=== PATIENT | male | born 1995 | race Caucasian/White ===

== ENCOUNTER → 2022-08-24 07:48 | Outpatient (CLI) | payer OTHER, SELFPAY | DX: R20.2 Paresthesia of skin (principal) | CPT/HCPCS: 95886; 95909 ==

== ENCOUNTER → 2022-11-13 10:08 | Outpatient (CLI) | payer OTHER, SELFPAY ==
--- NOTE | 2022-11-13 | DI.RAD.S_ITS ---
PROCEDURE: FL SHOULDER INJECTION MR/CT RT INDICATIONS: RIGHT SHOULDER PAIN COMPARISON: [facility], MR, MR SHOULDER RT W CON, 11/13/2022, 10:47. TECHNIQUE: The indications, alternatives, benefits, risks, and complications of the procedure were explained to the patient. Written informed consent was obtained and placed in the chart. The shoulder was examined fluoroscopically and a site for needle placement chosen for entry into the glenohumeral joint from an anterior approach. The skin was prepped and draped in a sterile fashion, and 1% lidocaine infiltrated from skin down to joint capsule. A spinal needle was inserted into the glenohumeral joint, and a small amount of iodinated contrast media injected to confirm intra-articular placement of the needle tip. This was followed by approximately 12 mL dilute solution of a gadolinium containing MR contrast agent. The needle was removed and a dressing was applied. The patient was given postprocedural instructions and sent to the MR suite for MR imaging. FINDINGS: A single fluoroscopic spot image demonstrates intra-articular location of injected iodinated contrast. IMPRESSION: Successful fluoroscopically guided administration of dilute Gadolinium solution into the shoulder joint for MR arthrogram. Dictated by: Khang Torres M.D. on 11/13/2022 at 14:36 Approved by: Khang Torres M.D. on 11/13/2022 at 14:37
--- NOTE | 2022-11-13 | DI.MRI.S_ITS ---
PROCEDURE: MR SHOULDER RT W CON INDICATIONS: RIGHT SHOULDER PAIN TECHNIQUE: After the administration of 12 mL of dilute intra-articular Gadolinium contrast, oblique coronal T1 and T2 spin echo with fat saturation, oblique sagittal T1 spin echo with and without fat saturation, oblique sagittal T2 fast spin echo with fat saturation, axial T1 spin echo with fat saturation through the shoulder. COMPARISON: [facility], , MD SHOULDER INJECTION MR/CT RT, 11/13/2022, 11:36. FINDINGS: Image quality: Excellent. Rotator cuff: Mild supraspinatus, infraspinatus, and subscapularis tendinosis without full-thickness tendon tear. No rotator cuff muscle atrophy on sagittal images. Bones and bursae: No bone marrow contusions or fractures. Moderate acromioclavicular joint degeneration. The acromion demonstrates conventional anatomy, without an os acromiale. Capsule and soft tissues: There is SLAP tear of the superior labrum extending to the biceps anchor. The glenohumeral ligaments appear intact. The long head of the biceps tendon demonstrates normal location and morphology. The rotator interval appears normal, without fibrosis. The coracohumeral ligament is of normal thickness. No intra-articular bodies. IMPRESSION: 1. SLAP tear. 2. Mild rotator cuff tendinosis. No gsyk-gotkxthsp-thgdqpirc tendon tear. 3. Moderate acromioclavicular joint degeneration. Dictated by: Michael Whelan M.D. on 11/13/2022 at 14:34 Approved by: Michael Whelan M.D. on 11/13/2022 at 14:38
== END ==
PROVIDERS: PCP Student in an Organized Health Care Education/Training Program; Referring Provider Orthopaedic Surgery; Visit Provider Orthopaedic Surgery
DX: S43.431A Superior glenoid labrum lesion of right shoulder, initial encounter (principal); M19.011 Primary osteoarthritis, right shoulder; M25.511 Pain in right shoulder
CPT/HCPCS: 23350; 73222; 77002

== ENCOUNTER → 2022-11-15 08:10 | Outpatient (CLI) | payer OTHER, SELFPAY ==
--- NOTE | 2022-11-15 | DI.RAD.S_ITS ---
PROCEDURE: FL JOINT INJECTION MEDIUM RT INDICATIONS: RIGHT SHOULDER PAIN, CORTICOSTEROID INJECTION COMPARISON: [facility], MR, MR SHOULDER RT W CON, 11/13/2022, 10:47. [facility], RF, FL SHOULDER INJECTION MR/CT RT, 11/13/2022, 11:36. TECHNIQUE: The indications, alternatives, benefits, risks, and complications of the procedure were explained to the patient. Written informed consent was obtained and placed in the chart. The patient was placed in an appropriate position on the fluoroscopy table, and a site was chosen for percutaneous access under fluoroscopic guidance. The site was prepped and draped in a sterile fashion. Local anesthetic was administered using a 1% lidocaine solution. A hypodermic or spinal needle was then used to access the symptomatic joint. Intra-articular location of the needle tip was confirmed by injecting a small amount of contrast, followed by steroid administration. The needle was then withdrawn, and a bandage applied to the puncture site. FINDINGS: Joint injected: Right shoulder Medications injected: 4 mL of 40 mg/mL Kenalog and 0.5% Ropivacaine mixture. Patient's pain before injection: 7 out of 10. Patient's pain after injection: 7 out of 10. Complications: None. IMPRESSION: Successful fluoroscopically guided administration of steroid and anaesthetic solution into the right glenohumeral joint. Dictated by: Michael Whelan M.D. on 11/15/2022 at 13:43 Approved by: Michael Whelan M.D. on 11/15/2022 at 13:47
== END ==
PROVIDERS: PCP Student in an Organized Health Care Education/Training Program; Referring Provider Orthopaedic Surgery; Visit Provider Orthopaedic Surgery
DX: M25.511 Pain in right shoulder (principal)
CPT/HCPCS: 20605; 77002

== ENCOUNTER 2023-11-17 16:30 | Emergency (ER) | payer OTHER, SELFPAY ==
[2023-11-17 16:38] VITALS: BP 146/76; PULSE 88; RESP 17; TEMP 37; O2SAT 98; BMI 31.8
--- NOTE | 2023-11-17 16:42 | DI.RAD.S_ITS ---
PROCEDURE: XR ANKLE RT MIN 3V INDICATIONS: snowboarding injury TECHNIQUE: 3 views of the ankle were acquired. COMPARISON: None. FINDINGS: Bones: No fractures or dislocations. Ankle mortise is normally aligned. No suspicious bony lesions. Soft tissues: No tibiotalar joint effusion. Achilles tendon appears normal. IMPRESSION: No acute bony abnormality or significant effusion. Approved by: Samson Jaimes M.D. on 11/17/2023 at 17:13
[2023-11-17] MEDS: KETOROLAC 30 MG/ML VIAL IM (16:58)
--- NOTE | 2023-11-17 18:12 | ED.LOWEXIN ---
HPI - Extremity Injury (Lower) <Leora Nuno PA-C - Last Filed: 11/17/23 19:01> General Chief Complaint: Extremity Injury, Lower Stated Complaint: ankle injury Time Seen by Provider: 11/17/23 16:54 Source: patient Mode of arrival: Wheelchair History of Present Illness HPI Narrative: Patient is a 28-year-old male who was snowboarding today on sticky snow and collided with a tree with the bottom of his board but with all his weight behind his right foot. He immediately felt intense right ankle pain. He was put in a make-shift splint by skin carver and then came to the emergency room. He did not take any medicine. No history of injury or surgery to that ankle. He currently takes amitriptyline for headaches and gabapentin for nerve pain. He denies any recent fever, chills, cough, sore throat or other symptoms. Related Data Home Medications Medication Instructions Recorded Confirmed amitriptyline 25 mg tablet 25 mg PO DAILY 11/17/23 11/17/23 gabapentin 300 mg tablet 300 mg PO DAILY 11/17/23 11/17/23 sumatriptan succinate 3 mg/0.5 mL 3 mg SUBCUT Q1H 11/17/23 11/17/23 subcutaneous pen injector Allergies Allergy/AdvReac Type Severity Reaction Status Date / Time No Known Drug Allergies Allergy Verified 11/17/23 16:40 Review of Systems <Leora Nuno PA-C - Last Filed: 11/17/23 19:01> Review of Systems ROS Unobtainable: All systems reviewed & are unremarkable except as noted in HPI and below Patient History <Leora Nuno PA-C - Last Filed: 11/17/23 19:01> Social History Smoking Status: Never smoker Smoking Status: Never smoker alcohol intake frequency: other Substance Use Type: does not use Exam <Leora Nuno PA-C - Last Filed: 11/17/23 19:01> Narrative Exam Narrative: GENERAL: 28 year old patient appears stated age. Well-developed patient, in mild distress. NEURO: AOx3. HEAD: Atraumatic. Normocephalic. EYES: Pupils equal round and reactive. Extraocular motions intact. No scleral icterus. No injection or drainage. ENT: Nose without bleeding or purulent drainage. Airway patent. RESPIRATORY: No distress. EXTREMITIES: Mild edema of the right ankle, tenderness to palpation of the posterior aspect of the lateral malleolus. 2+ DP pulse, capillary refill 2 seconds. SKIN: No rash or erythema of visible areas Initial Vital Signs Initial Vital Signs: Vital Signs Temperature 98.6 F 11/17/23 16:38 Pulse Rate 88 11/17/23 16:38 Respiratory Rate 17 11/17/23 16:38 Blood Pressure 146/76 H 11/17/23 16:38 Pulse Oximetry 98 11/17/23 16:38 Oxygen Delivery Method Room Air 11/17/23 16:38 <Leni Stevenson MD - Last Filed: 11/19/23 22:08> Initial Vital Signs Initial Vital Signs: Vital Signs Temperature 98.6 F 11/17/23 16:38 Pulse Rate 88 11/17/23 16:38 Respiratory Rate 17 11/17/23 16:38 Blood Pressure 146/76 H 11/17/23 16:38 Pulse Oximetry 98 11/17/23 16:38 Oxygen Delivery Method Room Air 11/17/23 16:38 Course <Leora Nuno PA-C - Last Filed: 11/17/23 19:01> Orders Ordered: Discontinued Medications Ketorolac Tromethamine (Ketorolac 30 Mg/Ml Vial) 30 mg IM NOW ONE Stop: 11/17/23 16:55 Last Admin: 11/17/23 16:58 Dose: 30 mg Documented By: SB Vital Signs Vital signs: Vital Signs - 8 hr 11/17/23 16:38 Temperature 98.6 F Pulse Rate 88 Respiratory Rate 17 Blood Pressure 146/76 H Pulse Oximetry 98 Oxygen Delivery Method Room Air <Leni Stevenson MD - Last Filed: 11/19/23 22:08> Orders Ordered: Discontinued Medications Ketorolac Tromethamine (Ketorolac 30 Mg/Ml Vial) 30 mg IM NOW ONE Stop: 11/17/23 16:55 Last Admin: 11/17/23 16:58 Dose: 30 mg Documented By: SB Vital Signs Vital signs: Vital Signs - 8 hr 11/17/23 16:38 Temperature 98.6 F Pulse Rate 88 Respiratory Rate 17 Blood Pressure 146/76 H Pulse Oximetry 98 Oxygen Delivery Method Room Air MDM - Extremity Injury (Lower) <Leora Nuno PA-C - Last Filed: 11/17/23 19:01> Imaging Data Extremity x-ray #1: Radiologist's Impression: PROCEDURE: XR ANKLE RT MIN 3V INDICATIONS: snowboarding injury TECHNIQUE: 3 views of the ankle were acquired. COMPARISON: None. FINDINGS: Bones: No fractures or dislocations. Ankle mortise is normally aligned. No suspicious bony lesions. Soft tissues: No tibiotalar joint effusion. Achilles tendon appears normal. IMPRESSION: No acute bony abnormality or significant effusion. Approved by: Samson Jaimes M.D. on 11/17/2023 at 17:13 [facility] Narrative Medical decision making narrative: Multiple etiologies for patient's symptoms considered including, but not limited to: Sprain, fracture, dislocation X-ray without evidence of dislocation or fracture. Patient's pain addressed with IM Toradol and ice. Kartik wrap applied. Advised RICE. Return for reassessment if not improving after 10-14 days of conservative therapy. Patient's symptoms improved over duration of stay with above-stated therapies. Findings and discharge diagnosis discussed with patient/family followed by verbalization of understanding Return precautions discussed with patient/family whom verbalize understanding of diagnosis and plan Discharge Plan Departure Patient Disposition: Home Clinical Impression: Ankle sprain and strain Instructions: DI for Ankle Sprain Activity Restrictions/Additional Instructions: *You have been diagnosed with right ankle sprain. If your pain is not improving after 2 weeks of conservative therapy, please follow up for repeat examination. You are advised to use: R: rest. take it easy and listen to your body! I: ice. apply ice for 20 minutes every 2 hours while awake. Do not put ice directly on the skin. C: compression. Gentle compression with kartik wrap or splint will decrease pain and swelling. E: elevation. Keep extremity elevated above the heart whenever possible. Use tylenol or ibuprofen for inflammation and pain. It is generally safe to take up to 3-4grams of tylenol in 24 hours, or 2400mg of ibuprofen in 24 hours. If you have questions about dosing or whether these medications are safe for you, please ask a healthcare provider. *What to do: *Please continue to take your regular medications as directed. [ ] New medication prescriptions sent to your pharmacy: [ ] [ ] New medication written as a paper prescription [x] No new medications given *Please follow up with your primary care provider in 2-3 days, call for an appointment. Let them know you were seen in the Emergency Department and that we ask that you be seen in follow up. We will electronically transmit a record of today's note if your PCP is in our system *If you do not have a primary care provider please contact the [facility] Resource line at [phone]. They will ask some questions about your medical history and help get you set up with a doctor in the community. *Return to Emergency Department if you should have any new, worsening or concerning symptoms, such as [fever greater than 101 F, shaking chills, worsening pain, persistent vomiting or other concerning symptoms]. Prescriptions: No Action amitriptyline 25 mg Tablet 25 mg PO DAILY gabapentin 300 mg Tablet 300 mg PO DAILY sumatriptan succinate 3 mg/0.5 mL Pen Injector 3 mg SUBCUT Q1H Rx Instructions: do not exceed 4 doses per 24 hrs Referrals: Yaneth Tsai MD [Primary Care Provider] - Stand Alone Forms: Patient Portal/API ED Sign-out <Leni Stevenson MD - Last Filed: 11/19/23 22:08> Cosign ED Attending Abature Attestation: I did not see this patient. I was available all times for consultation.
== END 2023-11-17 18:29 | disposition home or self-care (01) ==
PROVIDERS: Emergency Provider Physician Assistant; PCP Student in an Organized Health Care Education/Training Program
DX: S93.401A Sprain of unspecified ligament of right ankle, initial encounter (principal); S96.911A Strain of unspecified muscle and tendon at ankle and foot level, right foot, initial encounter; Y93.23 Activity, snow (alpine) (downhill) skiing, snowboarding, sledding, tobogganing and snow tubing
CPT/HCPCS: 73610; 96372; 99283; J1885

== ENCOUNTER → 2025-03-20 15:53 | Outpatient (CLI) | payer OTHER, SELFPAY ==
--- NOTE | 2025-03-20 16:03 | DI.RAD.S_ITS ---
PROCEDURE: XR ANKLE RT 2V INDICATIONS: RT ANKLE PAIN TECHNIQUE: 2 views of the ankle were acquired. COMPARISON: [facility], CR, XR ANKLE RT MIN 3V, 11/17/2023, 16:49. FINDINGS: Bones: No fractures or dislocations. Ankle mortise is normally aligned. No suspicious bony lesions. Soft tissues: No tibiotalar joint effusion. Achilles tendon appears normal. IMPRESSION: No acute osseous abnormality. If pain persists with conservative management, consider repeat x-ray in 10-14 days or cross-sectional imaging. Dictated by: Vernon Jones M.D. on 03/20/2025 at 20:33 Approved by: Vernon Jones M.D. on 03/20/2025 at 20:33
[2025-03-20 17:51] LABS: Testosterone 411 ng/dL (132-813)
== END ==
PROVIDERS: PCP Student in an Organized Health Care Education/Training Program; Referring Provider Student in an Organized Health Care Education/Training Program; Visit Provider Chiropractor
DX: E29.1 Testicular hypofunction (principal); M13.871 Other specified arthritis, right ankle and foot
CPT/HCPCS: 36415; 73600; 84403